=== PATIENT | male | born 1995 | race Caucasian/White ===

== ENCOUNTER 2017-10-13 22:42 | Emergency (ER) | payer BC ==
[2017-10-13] MEDS ORDERED: ONDANSETRON 4 MG/2 ML VIAL IVP ONE (22:59)
[2017-10-13] MEDS ORDERED: NS 1,000 ML IV ONE (22:59)
[2017-10-13 23:00] VITALS: O2SAT 100
[2017-10-13 23:00] LABS: % IMMATURE GRANULYOCYTES 0.2 % (0.0-1.1); ABSOLUTE IMMATURE GRANULOCYTES 0.01 10^3/uL (0.00-0.10); ADD DIFF? NO; ADD MORPH? NO; ADD SCAN? NO; ATYPICAL LYMPHOCYTE FLAG 20 (0-99); FRAGMENT RBC FLAG 0 (0-99); HEMATOCRIT 40.8 % (40.0-51.0); HEMOGLOBIN 14.3 g/dL (13.7-17.5); LEFT SHIFT FLG 0 (0-99); LIPEMIA HEMOLYSIS FLAG 90 (0-99); MEAN CELL HEMOGLOBIN 31.3 pg (27.9-34.1); MEAN CELL VOLUME 89.3 fL (81.5-99.8); MEAN PLATELET VOLUME 9.9 fL (8.7-11.7); PLATELET CLUMPS FLAG 10 (0-99); PLATELET COUNT 211 10^3/uL (150-400); RED BLOOD CELL COUNT 4.57 10^6/uL (4.40-6.38); RED CELL DISTRIBUTION WIDTH 12.7 % (11.5-15.2)
[2017-10-13 23:11] LABS: ANION GAP 15 mEq/L (8-16); APTT 25.5 SEC (23.0-38.0); CALCIUM 8.9 mg/dL (8.5-10.4); CARBON DIOXIDE 24 mEq/l (22-31); CHLORIDE 105 mEq/L (97-110); GLOMERULAR FILTRATION RATE > 60; GLUCOSE 97 mg/dL (70-100); INR 0.91 (0.83-1.16); POTASSIUM 3.8 mEq/L (3.5-5.2); PROTIME(PATIENT) 12.5 SEC (12.0-15.0); SODIUM 144 mEq/L (134-144)
--- NOTE | 2017-10-13 23:15 | EDPHY ---
H & P Stated Complaint: Full Trauma, Fall Time Seen by Provider: 10/13/17 22:52 HPI/ROS: Chief Complaint: Fall, unresponsive HPI: 22-year-old presumably intoxicated male was witnessed to trip and fall off of a 3 ft retaining wall, landed forward on his head on the concrete. EMS was called. On arrival the patient was unresponsive. He was not responding to noxious stimuli. Bystanders stated that he had been drinking alcohol. No obvious head trauma per EMS. Patient had normal heart rate and vital signs per EMS and was breathing on his own. Remainder of history is unavailable secondary to the patient's decreased responsiveness. ROS: Unavailable secondary to the patient's decreased responsiveness. PMH: Unknown Social History: Unknown Family History: non-contributory Physical Exam: Gen: Unresponsive, Airway Intact, patient is localizing to pain, making incomprehensible sounds, smells of alcohol, GCS 7 HEENT: Head: Atraumatic Eyes: Pupils 6-4 bilaterally, equally reactive in brisk Ears: No hemotympanum Nose: No epistaxis Mouth: Normal dentition, Airway patent Face: No deformity Neck: non-tender, no stepoff Chest: non-tender, lungs CTA Heart: normal heart tones Abd: soft, abrasion over the left iliac crest Pelvis: stable to AP and Lateral compression Back: atraumatic, no midline tenderness Ext: atramatic, full ROM Skin: no rash Neuro: Moving all extremities - Personal History Current Tetanus/Diphtheria Vaccine: Unsure Current Tetanus Diphtheria and Acellular Pertussis (TDAP): Unsure - Medical/Surgical History Other PMH: unobtainable. - Social History Smoking Status: Unknown if ever smoked Constitutional: Initial Vital Signs Temperature (C) 36.4 C 10/13/17 22:41 Heart Rate 101 H 10/13/17 22:41 Respiratory Rate 22 H 10/13/17 22:41 Blood Pressure 110/82 H 10/13/17 22:41 O2 Sat (%) 100 10/13/17 22:41 O2 Delivery Mode Non-Rebreather Mask O2 (L/minute) 15 Allergies/Adverse Reactions: Unable to Assess Allergy (Unverified 12/14/15 15:59) Home Medications: Medication Instructions Recorded Unobtainable 12/14/15 Medical Decision Making - Diagnostics EKG Interpretation: ECG time 11:37 p.m., sinus rhythm with a rate of 87, normal axis, there is J- point elevation diffusely consistent with early repolarization. Impression: Normal ECG. Imaging Results: Imaging Impressions Cervical Spine CT 10/13/17 22:43 Impression: Negative noncontrast CT of the cervical spine for acute traumatic injury. Results reviewed at the console at the time of the study.. Head CT 10/13/17 22:43 Impression: Small focus of parenchymal hemorrhage involving the high right parietal subcortical white matter. Results reviewed directly at the time of the scan. Abdomen CT 10/13/17 22:46 Impression: No acute posttraumatic findings in the chest abdomen and pelvis. Examination reviewed at the console the time of study acquisition. Chest CT 10/13/17 22:46 Impression: No acute posttraumatic findings in the chest abdomen and pelvis. Examination reviewed at the console the time of study acquisition. Procedures: Procedure: Trauma ultrasound. Limited echocardiogram for pericardial effusion. Limited bedside ultrasound was performed and interpreted by myself for the indication of: thoracoabdominal trauma utilizing the thoracoabdominal emergency ultrasound protocol. Limited transthoracic echocardiogram: The pericardium was visualized and found to be negative for pericardial fluid. The study was negative for pericardial effusion. Limited abdominal ultrasound for blunt abdominal trauma. 1) The right upper quadrant was visualized and was found to be negative for intraperitoneal fluid. 2) The left upper quadrant was visualized and found to be negative for intraperitoneal fluid. The study was felt to be negative for free intraperitoneal fluid. Limited pelvic ultrasound was conducted for abdominal trauma. The bladder was visualized and did not reveal an anechoic area outside of the adjacent urinary bladder. The study was felt to be negative for free intraperitoneal fluid. Limited transthoracic ultrasound for PE shows the bilateral normal string of pearls sign with normal a.m. mode bilaterally, no evidence of pneumothorax. ED Course/Re-evaluation: Patient arrived as a full trauma team activation. No overt initial vital signs were unremarkable. No obvious signs of head trauma. Pupils reactive. Patient smelled of alcohol. Dr. Arambula present at the bedside on patient arrival. Patient underwent primary and secondary survey and E fast scan. Then proceeded directly to CT scanning. CT scan of the head noted for a right parenchymal bleed. Patient's blood alcohol 320. Dr. Arambula has arranged for transfer to [facility] for further care. There are no ICU beds available in this hospital at this time. - Data Points Laboratory Results: Laboratory Results 10/13/17 22:47 10/13/17 22:47 10/13/17 10/13/17 10/13/17 22:47 22:47 22:47 WBC RBC Hgb POC Hgb Hct POC Hct MCV MCH MCHC RDW Plt Count MPV Neut % (Auto) Lymph % (Auto) [place] % (Auto) Eos % (Auto) Baso % (Auto) Nucleat RBC Rel Count Absolute Neuts (auto) Absolute Lymphs (auto) Absolute Monos (auto) Absolute Eos (auto) Absolute Basos (auto) Absolute Nucleated RBC Immature Gran % Immature Gran # PT 12.5 SEC SEC (12.0-15.0) INR 0.91 (0.83-1.16) APTT 25.5 SEC SEC (23.0-38.0) POC Sodium Sodium 144 mEq/L mEq/L (134-144) POC Potassium Potassium 3.8 mEq/L mEq/L (3.5-5.2) POC Chloride Chloride 105 mEq/L mEq/L (97-110) Carbon Dioxide 24 mEq/l mEq/l (22-31) Anion Gap 15 mEq/L mEq/L (8-16) POC BUN BUN 17 mg/dL mg/dL (7-23) Creatinine 1.0 mg/dL mg/dL (0.7-1.3) POC Creatinine Estimated GFR > 60 Glucose 97 mg/dL mg/dL (70-100) POC Glucose Calcium 8.9 mg/dL mg/dL (8.5-10.4) Ethyl Alcohol 328 mg/dL H mg/dL (0-10) Patient ABO/Rh A POSITIVE Antibody Screen NEGATIVE 10/13/17 10/13/17 22:47 22:42 WBC 5.42 10^3/uL 10^3/uL (3.80-9.50) RBC 4.57 10^6/uL 10^6/uL (4.40-6.38) Hgb 14.3 g/dL g/dL (13.7-17.5) POC Hgb 15.3 gm/dL gm/dL (13.7-17.5) Hct 40.8 % % (40.0-51.0) POC Hct 45 % % (40-51) MCV 89.3 fL fL (81.5-99.8) MCH 31.3 pg pg (27.9-34.1) MCHC 35.0 g/dL g/dL (32.4-36.7) RDW 12.7 % % (11.5-15.2) Plt Count 211 10^3/uL 10^3/uL (150-400) MPV 9.9 fL fL (8.7-11.7) Neut % (Auto) 51.3 % % (39.3-74.2) Lymph % (Auto) 37.3 % % (15.0-45.0) [place] % (Auto) 9.4 % % (4.5-13.0) Eos % (Auto) 1.1 % % (0.6-7.6) Baso % (Auto) 0.7 % % (0.3-1.7) Nucleat RBC Rel Count 0.0 % % (0.0-0.2) Absolute Neuts (auto) 2.78 10^3/uL 10^3/uL (1.70-6.50) Absolute Lymphs (auto) 2.02 10^3/uL 10^3/uL (1.00-3.00) Absolute Monos (auto) 0.51 10^3/uL 10^3/uL (0.30-0.80) Absolute Eos (auto) 0.06 10^3/uL 10^3/uL (0.03-0.40) Absolute Basos (auto) 0.04 10^3/uL 10^3/uL (0.02-0.10) Absolute Nucleated RBC 0.00 10^3/uL 10^3/uL (0-0.01) Immature Gran % 0.2 % % (0.0-1.1) Immature Gran # 0.01 10^3/uL 10^3/uL (0.00-0.10) PT INR APTT POC Sodium 142 mEq/L mEq/L (134-144) Sodium POC Potassium 3.5 mEq/L mEq/L (3.3-5.0) Potassium POC Chloride 105 mEq/L mEq/L (97-110) Chloride Carbon Dioxide Anion Gap POC BUN 16 mg/dL mg/dL (7-23) BUN Creatinine POC Creatinine 1.5 mg/dL H mg/dL (0.7-1.3) Estimated GFR Glucose POC Glucose 99 mg/dL mg/dL (70-100) Calcium Ethyl Alcohol Patient ABO/Rh Antibody Screen Medications Given: Discontinued Medications Sodium Chloride (Ns) 1,000 mls @ 0 mls/hr IV ONCE ONE; Wide Open PRN Reason: Protocol Stop: 10/13/17 23:00 Last Admin: 10/13/17 23:33 Dose: 1,000 mls Ondansetron HCl (Zofran) 4 mg IVP EDNOW ONE Stop: 10/13/17 23:00 Last Admin: 10/13/17 22:48 Dose: 4 mg Point of Care Test Results: 10/13/17 22:42 POC Sodium 142 POC Potassium 3.5 POC Chloride 105 POC BUN 16 POC Creatinine 1.5 H POC Glucose 99 Departure - Departure Disposition: Acute Care [facility] Clinical Impression: Intraparenchymal hemorrhage of brain, Alcohol intoxication Condition: Serious Referrals: Patient,NotPresent [Primary Care Provider] - As per Instructions
[2017-10-13 23:19] LABS: ETHANOL SERUM 328 mg/dL (0-10)
--- NOTE | 2017-10-13 23:39 | CPEKG ---
Heart Rate: 87 RR Interval: 690 P-R Interval: 208 QRSD Interval: 88 QT Interval: 376 QTC Interval: 453 P Montague: 70 QRS Montague: 51 T Wave Montague: 57 EKG Severity - NORMAL ECG - EKG Impression: SINUS RHYTHM EKG Impression: ST ELEV, PROBABLE NORMAL EARLY REPOL PATTERN Electronically Signed By: Rivas Lewis 14-Oct-2017 06:29:39
[2017-10-14 00:13] LABS: BASE EXCESS -1.2 mEq/L (-2.5-2.5); BICARBONATE 24 mEq/L (22-26); MEASURED OXYGEN SATURATION 99 % (92-95); PCO2 43 mmHg (34-38); PO2 204 mmHg (65-75); TCO2 25 mEq/L (23-27)
[2017-10-14 00:34] VITALS: RESP 15
[2017-10-14 01:11] VITALS: BP 119/62; PULSE 80; TEMP 97.2
--- NOTE | 2017-10-14 01:32 | GDS ---
[f rep st] TRANSFER SUMMARY HISTORY AND PHYSICAL AND TRANSFER SUMMARY HISTORY: The patient is a 22-year-old male who was running and apparently fell over 3 foot wall landing on a cement walkway. He was unresponsive at the scene , and transported by EMS. He did not have any vomiting. On admission, he was met in the emergency room by Dr. Lewis and Dr. Arambula. PHYSICAL EXAMINATION: HEENT: Evaluation of his head and neck first shows that his airway is clear, his breathing is unencumbered, and there is no external bleeding. Specifically, regarding his head, his skull is palpably normal. There are no raccoon eyes. There is no Rodriguez sign. His jaw appears to be stable. NECK: He is in a C-collar and he is left in a C-collar due to his mental status. UPPER EXTREMITIES: His right upper extremity is ranged and found to be unremarkable. His left upper extremity is ranged and found to be unremarkable. His clavicles are palpably normal. His chest is stable to AP and lateral compression. Breath sounds are equal bilaterally. CARDIAC: Shows S1, S2 to be normal with normal split of S2, without murmurs, rubs, or gallops. ABDOMEN: Soft, nontender. There is an umbilical hernia noted. There is an abrasion on his left flank. His pelvis is stable to AP and lateral compression. LOWER EXTREMITIES: Ranged and found to be unremarkable. VITAL SIGNS: On admission, were 110/82, heart rate of 99, respirations 20, temperature 36.2. MEDICATIONS: Received have been limited to Zofran. IMAGING: He was taken to CAT scan. In CAT scan, the CAT scan of his head shows a minimal skin thickening consistent with a contusion. It shows a small intraparenchymal linear bleed in the right posterior parietal/occipital area. There is no evidence of shift. There is no evidence of epidural or subdural bleed. There is a suggestion of a small subarachnoid bleed near the brainstem. CT of his neck is unremarkable. CT of his chest shows no great vessel injury. No pneumothorax. No pulmonary contusion. No hemo or hydrothorax. Note is made he did have an extended FAST examination in the ER, which did show a full bladder, a normal right kidney with no evidence of fluid in Morison's pouch. Normal left kidney with no fluid between the spleen and the kidney. The cardiac exam showed no evidence of pericardial effusion and good contraction. The pulmonary examination did not show any signs of pneumothorax. The CAT scan of the abdomen confirmed the above findings. The CAT scan of the pelvis was similarly negative. LABORATORY DATA: His coagulation parameters are normal. His blood alcohol is 320, as mentioned above. His hematocrit is 40.8, platelet count is 211. His INR is 0.91. His chemistries reveal sodium 144, potassium of 3.8, BUN of 17 and a creatinine of 1.0. His calcium is 8.9. HOSPITAL COURSE: Unfortunately, there are no available ICU beds at this facility. I have contacted [facility] and talked with Dr. Carlos Alberto Mendez, who is the trauma surgeon yarn preparation supervisor, and she will accept the patient in transfer. He is not intubated at this point and appears to be protecting his airway. Since admission, he has become a little more arousable. He did move his right upper extremity for localizing pain (pinch of his left trapezius), but that is the only movement we have seen. An ABG will be obtained to make sure that his ventilation is appropriate. A Alicea catheter hasd been placed and 300 cc of clear yellow urine had been obtained. PLAN: At this point, I do not see indication to intubate. He will be sent by critical care ambulance to [facility]. /[id number]/MODL MTDD
== END 2017-10-14 01:00 | disposition short-term general hospital (02) ==
LOC: EDUNIT#
PROC: 0T9B70Z Drainage of Bladder with Drainage Device, Via Natural or Artificial Opening (ICD-10-PCS; principal; 2017-10-13)
DX: S06.360A Traumatic hemorrhage of cerebrum, unspecified, without loss of consciousness, initial encounter (principal); W17.89XA Other fall from one level to another, initial encounter; F10.129 Alcohol abuse with intoxication, unspecified; E86.9 Volume depletion, unspecified
CPT/HCPCS: 82947-QW; 96374; G0480

== ENCOUNTER 2017-10-17 09:45 | Emergency (ER) | payer BC ==
[2017-10-17 09:55] VITALS: BP 105/69; PULSE 106; RESP 16; TEMP 98.1; O2SAT 93
--- NOTE | 2017-10-17 10:26 | EDPHY ---
H & P Time Seen by Provider: 10/17/17 10:12 HPI/ROS: CHIEF COMPLAINT: Correa catheter problem HISTORY OF PRESENT ILLNESS: 22-year-old male presents with problem with his Correa catheter. He was seen in this emergency department on 10/13/2017 after a closed head injury. He apparently fell off a 3 ft wall and was found unresponsive. During his emergency department evaluation, a Correa catheter was placed. Apparently the Correa catheter was inflated within the urethra. He was transferred to [facility] because of unavailability of ICU beds. He was seen by a urologist at [facility]. He continues to have a Correa catheter in place and the plan is for the Correa catheter to be removed over the weekend. The Correa catheter is pulling on his penis and is also frequently becoming disconnected at the junction with his collection bag. He denies suprapubic pain. REVIEW OF SYSTEMS: Constitutional: No fever, no chills Eyes: No visual changes ENT: No sore throat Respiratory: No cough, no shortness of breath Cardiac: No chest pain Gastrointestinal: No nausea, no vomiting, no abdominal pain Genitourinary: no dysuria Musculoskeletal: No leg pain or swelling Skin: No rash Neurological: No headache Psychiatric: No anxiety Past Medical/Surgical History: Urethral injury Alcohol abuse Social History: [employer] student Smoking Status: Never smoked Physical Exam: General Appearance: Alert, pleasant Eyes: Pupils equal and round, no conjunctival pallor ENT, Mouth: Mucous membranes moist Neck: Normal inspection Respiratory: Lungs are clear to auscultation Cardiovascular: Regular rate and rhythm Gastrointestinal: Abdomen is soft and nontender Genitourinary: Correa catheter in place, draining yellow urine Neurological: A&O, nonfocal, normal gait Skin: Warm and dry Extremities: normal inspection Psychiatric: Mood and affect normal Constitutional: Initial Vital Signs Temperature (C) 36.7 C 10/17/17 09:51 Heart Rate 106 H 10/17/17 09:51 Respiratory Rate 16 10/17/17 09:51 Blood Pressure 105/69 10/17/17 09:51 O2 Sat (%) 93 10/17/17 09:51 O2 Delivery Mode Room Air Allergies/Adverse Reactions: No Known Allergies Allergy (Unverified 10/17/17 09:51) Home Medications: Medication Instructions Recorded NK [No Known Home Meds] 10/17/17 Medical Decision Making ED Course/Re-evaluation: The correa catheter was adjusted by the ED RN. Dr. Orellana consulted, pt will f/u in the office on Sunday. Departure - Departure Disposition: Home, Routine, Self-Care Clinical Impression: Correa catheter problem Qualifiers: Encounter type: initial encounter Qualified Code(s): T83.9XXA - Unspecified complication of genitourinary prosthetic device, implant and graft, initial encounter Condition: Good Instructions: Correa Catheter Placement and Care (ED) Additional Instructions: I spoke with Dr. Orellana, the urologist front end technician. Follow up in the office on Sunday. You have an appointment with Dr. Hester at [facility] in [place] on October 19 at 9:15 AM [facility] [address] [address] Please bring your insurance card and photo ID to your appointment Referrals: Gil Orellana MD [Medical Doctor] - As per Instructions
--- NOTE | 2017-10-17 12:04 | ASMTCMCOM ---
CM Note CM Note Notes: Case Management asked to assist with making follow up appointment with [facility]. Appointment made with Dr. Hester at the [place] office for October 19 at 0915 AM. I informed patient of this appointment and called patient on his cell phone asking him if I could leave a VM with details/address, etc for appointment. Message left with details as well as CM phone number for any other follow up questions/concerns. Date Signed: 10/17/2017 12:04 PM Electronically Signed By:Mayra Pringle RN
== END 2017-10-17 11:45 | disposition home or self-care (01) ==
DX: T83.9XXA Unspecified complication of genitourinary prosthetic device, implant and graft, initial encounter (principal); Y73.2 Prosthetic and other implants, materials and accessory gastroenterology and urology devices associated with adverse incidents

== ENCOUNTER 2017-10-18 17:53 | Emergency (ER) | payer BC ==
[2017-10-18 18:04] VITALS: TEMP 97.7
--- NOTE | 2017-10-18 18:40 | EDPHY ---
H & P Stated Complaint: bleeding around correa catheter/seen yesterday for same Time Seen by Provider: 10/18/17 18:40 HPI/ROS: Chief complaint: Penis pain, bleeding from Correa insertion History of present illness: This is a 22-year-old male who returns to the emergency room reporting pain in his penis from a Correa insertion. Patient was brought to this hospital approximately a week ago as a full trauma activation. He ultimately was diagnosed with an intracranial bleed and transferred to [facility]. When he was bernice to the ED for the trauma a Correa catheter was inserted and the balloon was inflated before was Correa was all the way into the bladder causing some urethral damage. It is my understanding that while at [facility] that catheter was removed and a new 1 was placed under cystoscopy and left in place to allow the injury to the urethra to heal. Patient was seen in this emergency department yesterday for the same problem. His leg bag was replaced and he felt better. He states again he is having pain in the penis region. Some bleeding coming from the urethral meatus. He reports the sensation that he is not emptying his bladder. No new signs or symptoms including no fevers, no back or flank pain, no pain or swelling in the testicles. He is scheduled to see Urology tomorrow morning at 9:15 a.m.. - Personal History Current Tetanus/Diphtheria Vaccine: No - Medical/Surgical History Hx Asthma: Yes Hx Chronic Respiratory Disease: No Hx Diabetes: No Hx Cardiac Disease: No Hx Renal Disease: No Hx Cirrhosis: No Hx Alcoholism: Yes Hx HIV/AIDS: No Hx Splenectomy or Spleen Trauma: No Other PMH: head trauma, L ankle surgery, L elbow fx - Social History Smoking Status: Never smoked - Physical Exam Exam: General Appearance: Alert, nontoxic Genitourinary: Correa catheter is in place. Dry blood at the urethral meatus. There is clear urine flowing through the catheter. Abdomen: Bowel sounds normal. Abdomen soft, nondistended, nontender. Skin: No rashes or lesions. Constitutional: Initial Vital Signs Temperature (C) 36.5 C 10/18/17 18:02 Heart Rate 95 10/18/17 18:02 Respiratory Rate 18 10/18/17 18:02 Blood Pressure 128/71 H 10/18/17 18:02 O2 Sat (%) 98 10/18/17 18:02 O2 Delivery Mode Room Air Allergies/Adverse Reactions: No Known Allergies Allergy (Verified 10/18/17 18:02) Home Medications: Medication Instructions Recorded NK [No Known Home Meds] 10/17/17 Medical Decision Making ED Course/Re-evaluation: Patient is discussed with my secondary supervising physician Dr. Jeffrey Yoo. Patient presents to the emergency department complaining of pain in his penis from a Correa catheter and sensation that he is not emptying his bladder. Bladder scanner is performed without urine noted in the bladder. Correa catheter bag is changed although Correa catheter is left in place. Patient states he is feeling better. Continues to have urine flow in catheter tubing. He is concerned that pain will return. He is given a 1 time dose of Percocet. He is scheduled to see Urology tomorrow morning. I have discussed the importance of keeping this appointment. Return precautions are given. The patient and his mother voiced understanding and agreement with plan. - Data Points Medications Given: Discontinued Medications Oxycodone/Acetaminophen (Percocet 5/325) 2 tab PO EDNOW ONE Stop: 10/18/17 19:20 Last Admin: 10/18/17 19:37 Dose: 2 tab Departure - Departure Disposition: Home, Routine, Self-Care Clinical Impression: Correa catheter problem Qualifiers: Encounter type: subsequent encounter Qualified Code(s): T83.9XXD - Unspecified complication of genitourinary prosthetic device, implant and graft, subsequent encounter Condition: Good Instructions: Correa Catheter Placement and Care (ED) Additional Instructions: Follow-up with your urologist tomorrow morning at 9:15 a.m. as arranged If symptoms worsen or new symptoms develop return to the emergency room for recheck Referrals: ROLY HUA [Primary Care Provider] - As per Instructions
[2017-10-18] MEDS ORDERED: OXYCODONE/APAP 5/325 TAB PO ONE (19:19)
[2017-10-18 19:43] VITALS: BP 137/78; PULSE 85; RESP 16; O2SAT 97
== END 2017-10-18 19:45 | disposition home or self-care (01) ==
DX: T83.9XXD Unspecified complication of genitourinary prosthetic device, implant and graft, subsequent encounter (principal); J45.909 Unspecified asthma, uncomplicated; Y73.2 Prosthetic and other implants, materials and accessory gastroenterology and urology devices associated with adverse incidents

== ENCOUNTER 2018-08-02 02:54 | Inpatient (IN) | payer BC ==
--- NOTE | 2018-08-02 03:00 | EDPHY ---
H & P Time Seen by Provider: 08/02/18 02:57 HPI/ROS: Chief Complaint: Suicidal ideation, alcohol intoxication HPI: 23-year-old male bar in by police on a mental health hold. Per police the patient called his mother this morning intoxicated and told her that he was going to commit suicide today. He did not provide her with a plan. He does have a history of a possible suicide attempt in the past. He sustained a fall off of a bridge. Per police report that was a prior suicide attempt. Patient states that he simply fell. He is currently denying thoughts of suicide. He is , however, uncooperative with providing history and exam. He is slurring his words and is clearly intoxicated. ROS: 10 systems were reviewed and were negative except those elements noted in the HPI. PMH: Denies Social History: No smoking, occasional alcohol, no recreational drug use Family History: non-contributory Physical Exam: Gen: Awake, Alert, slurred speech HEENT: Nose: no rhinorrhea Eyes: PERRLA, EOMI Mouth: Moist mucosa Neck: Supple, no JVD Chest: nontender, lungs clear to auscultation Heart: S1, S2 normal, no murmur Abd: Soft, non-tender, no guarding Back: no CVA tenderness, no midline tenderness Ext: no edema, non-tender Skin: no rash Neuro: CN II-XII intact, Sensation grossly intact, Strength 5/5 in bilateral upper and lower extremities (Rivas Lewis) Constitutional: Initial Vital Signs Temperature (C) 36.7 C 08/02/18 03:01 Heart Rate 74 08/02/18 03:01 Respiratory Rate 16 08/02/18 03:01 Blood Pressure 124/73 H 08/02/18 03:01 O2 Sat (%) 96 08/02/18 03:01 O2 Delivery Mode Room Air Allergies/Adverse Reactions: No Known Allergies Allergy (Unverified 08/02/18 03:01) Home Medications: Medication Instructions Recorded NK [No Known Home Meds] 08/02/18 Medical Decision Making ED Course/Re-evaluation: Patient's blood alcohol 261. Will need to wait for clearance of his alcohol for mental health evaluation. [address]700 patient signed out to Dr. Roach pending mental health evaluation. (Rivas Lewis) 7:00 a.m.-I assumed care of this patient at shift change. Awaiting mental health evaluation. 9:45 a.m.-admitted to [address] [place] [address] Nichols[address] (Jennifer Rodriguez) Differential Diagnosis: Differential diagnosis includes though it is not limited to suicidal ideation, overdose, acute psychosis, self-injury, alcohol withdrawal. (Jennifer Rodriguez) - Data Points Laboratory Results: Laboratory Results 08/02/18 03:05 08/02/18 03:05 08/02/18 08/02/18 08/02/18 03:05 03:05 03:05 WBC 6.05 10^3/uL 10^3/uL (3.80-9.50) RBC 5.11 10^6/uL 10^6/uL (4.40-6.38) Hgb 15.7 g/dL g/dL (13.7-17.5) Hct 45.5 % % (40.0-51.0) MCV 89.0 fL fL (81.5-99.8) MCH 30.7 pg pg (27.9-34.1) MCHC 34.5 g/dL g/dL (32.4-36.7) RDW 13.3 % % (11.5-15.2) Plt Count 221 10^3/uL 10^3/uL (150-400) MPV 10.1 fL fL (8.7-11.7) Neut % (Auto) 60.6 % % (39.3-74.2) Lymph % (Auto) 31.6 % % (15.0-45.0) Power % (Auto) 5.8 % % (4.5-13.0) Eos % (Auto) 0.8 % % (0.6-7.6) Baso % (Auto) 1.0 % % (0.3-1.7) Nucleat RBC Rel Count 0.0 % % (0.0-0.2) Absolute Neuts (auto) 3.67 10^3/uL 10^3/uL (1.70-6.50) Absolute Lymphs (auto) 1.91 10^3/uL 10^3/uL (1.00-3.00) Absolute Monos (auto) 0.35 10^3/uL 10^3/uL (0.30-0.80) Absolute Eos (auto) 0.05 10^3/uL 10^3/uL (0.03-0.40) Absolute Basos (auto) 0.06 10^3/uL 10^3/uL (0.02-0.10) Absolute Nucleated RBC 0.00 10^3/uL 10^3/uL (0-0.01) Immature Gran % 0.2 % % (0.0-1.1) Immature Gran # 0.01 10^3/uL 10^3/uL (0.00-0.10) Sodium 148 mEq/L H mEq/L (135-145) Potassium 3.7 mEq/L mEq/L (3.3-5.0) Chloride 115 mEq/L H mEq/L (97-110) Carbon Dioxide 18 mEq/l L mEq/l (22-31) Anion Gap 15 mEq/L mEq/L (8-16) BUN 10 mg/dL mg/dL (7-23) Creatinine 0.8 mg/dL mg/dL (0.7-1.3) Estimated GFR > 60 Glucose 137 mg/dL H mg/dL (70-100) Calcium 9.6 mg/dL mg/dL (8.5-10.4) Urine Opiates Screen NEGATIVE (NEGATIVE) Urine Barbiturates NEGATIVE (NEGATIVE) Ur Phencyclidine Scrn NEGATIVE (NEGATIVE) Ur Amphetamine Screen NEGATIVE (NEGATIVE) U Benzodiazepines Scrn NEGATIVE (NEGATIVE) Urine Cocaine Screen NEGATIVE (NEGATIVE) U Marijuana (THC) Screen NON-NEGATIVE H (NEGATIVE) Ethyl Alcohol 261 mg/dL H mg/dL (0-10) Departure - Departure Disposition: [facility] Clinical Impression: Suicidal ideation Alcohol intoxication Qualifiers: Complication of substance-induced condition: uncomplicated Qualified Code(s): F10.920 - Alcohol use, unspecified with intoxication, uncomplicated Condition: Good Instructions: Abuse of Alcohol (ED), Suicide Prevention (ED) Additional Instructions: Follow-up with mental health as suggested. Return with any concerns. Referrals: [facility] [Outside] - As per Instructions
[2018-08-02 03:19] LABS: PLATELET COUNT 221 10^3/uL (150-400)
--- NOTE | 2018-08-02 11:47 | ASMTTCLDSP ---
[facility] Discharge Disposition Disposition: Answers: Admit Disposition Notes: Notes: In consultation with [facility] ED physician, Jesenia Rodriguez MD and on-call psychiatrist, Estiven Romero MD, both concurred that pt appears to meet 27-65 criteria requiring psychiatric hospitalization as pt appears to be at risk of harm to self due to a mental illness condition. Pt was given the 3N prohibited belongings list while in the ED. Was patient given the Answers: Yes Inpatient Behavioral Health Prohibited Belongings List while in the ED? For inpatient Estiven Romero admission, the following psychiatrist agreed to accept patient for admission to Behavioral Health ([facility]): Type of Hold: Answers: M1/72-hour Hold Hold initiated by: Answers: ED Physician Date Signed: 08/02/2018 11:46 AM Electronically Signed By:Ynes Painting
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
[2018-08-02] MEDS ORDERED: chlordiazePOXIDE 25 MG CAP PO PRN (18:53)
[2018-08-02] MEDS ORDERED: MAGNESIUM HYDROXIDE 30 ML UDCUP PO PRN (18:53)
[2018-08-02] MEDS ORDERED: MAG HYDROX/AL HYDROX/SIMETH 30 ML UDCUP PO PRN (18:53)
[2018-08-02] MEDS ORDERED: PROMETHAZINE HCL 25 MG SUPPR PR PRN (18:53)
[2018-08-02] MEDS ORDERED: IBUPROFEN 200 MG TAB PO PRN (18:53)
[2018-08-02] MEDS ORDERED: THIAMINE HCL 100 MG TAB PO ONE (18:53)
[2018-08-02] MEDS: LORazepam 1 MG TAB PO PRN (19:00)
[2018-08-03] MEDS: LORazepam 1 MG TAB PO PRN ×4 (04:56→22:11)
[2018-08-03] MEDS: MULTIVITAMINS 1 EACH TAB PO SCH (09:14)
[2018-08-03] MEDS: THIAMINE HCL 100 MG TAB PO SCH (09:14)
[2018-08-03] MEDS: FOLIC ACID 1 MG TAB PO SCH (09:15)
--- NOTE | 2018-08-03 09:58 | ASMTBHMTP ---
Master Treatment Plan Master Treatment Plan Answers: Depressed Mood without for: Suicidal Ideation Date: 08/03/2018 Diagnosis on Admission: Unspecified Anxiety Disorder Expected length of stay: 3-5 Days Reason for admission: Notes: Per TLC Evaluation - Pt. is a 23 year old, single, male who was brought to the [facility] ED on a M1 hold. Police were called by out of state mother this am since pt had told his mother in an intoxicated state that he was going to kill himself. Pt. march of had a suspected suicide attempt in the past when he fell off a ledge. Per police report this was a prior suicide attempt. Pt. had stated the incident was simply a fall. Pt. presented with slurred speech in an intoxicated state. Per M1 hold pt was brought in by [employer] after receiving a phone call from his mother. She had stated on phone call that patient spoke with her on the phone this morning and stated he would kill himself today. Pt. is currently intoxicated and argumentative. Not barak for safety. Pt. was placed on a M1 hold by ED Physician. Patient's stated presenting problems: Notes: My mom wanted a wellness check over a misunderstanding. 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 Initial disposition plan/considerations: Notes: Return to school at Master Treatment Plan Required Signatures Psychiatrist signature: Answers: Psychiatrist: RN on-shift signature: Answers: RN: Patient signature: Answers: Patient: Date Signed: 08/03/2018 09:58 AM Electronically Signed By:Crissy Maldonado
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
--- NOTE | 2018-08-03 16:18 | BAPA ---
DATE OF SERVICE: 08/03/2018 CHIEF COMPLAINT: "I was just sitting on my couch minding my own business when 4 police officers showed up. I was drinking a little bit and of course, I was upset when they came into the house." HISTORY OF PRESENT ILLNESS: The patient is a 23-year-old single, man , who [facility]. Police were called by his mother who lives out of state. According to the mother, the patient called her while he was intoxicated, stating that he was planning to kill himself. According to the M1 hold states "patient brought in by [place] police after receiving a phone call from his mother. She stated that the patient spoke with her on the phone this morning and stated he would kill himself today. The patient is currently intoxicated and argumentative, not barak for safety. " M1 was signed by Dr. Lewis, in the [facility]. Further collateral information was obtained by the [facility] french drawer, who states that the patient told her, "I received an improper phone call from my mom. She is bipolar. A lot was going on. She called the police. It was not appropriate. It was a false accusation. " The mother told the [facility] french drawer, the patient has been "increasingly disturbed over the past week." Mother also noted, "I have been talking with him every day now. Last night, I believe he was having a panic attack because he saw his ex-girlfriend. He has a no contact order, but he still called her. Things are very out of control with him. He told me he wanted to kill himself. His behavior is so destructive, I am afraid he is going to kill himself. Look at his old records. He is blas to be alive." When this MD met with the patient on the [facility], he was well groomed, appropriately dressed, made appropriate eye contact. He was very frustrated about being placed in the hospital on an M1 hold. He denied any mental health problems. He denies feeling sad, depressed, hopeless, helpless, worthless. He denied having any thoughts, plans, or intents to hurt himself or anyone else. He denied any psychosis. There were no signs or symptoms of mine. The patient states that his admission was "all a mistake." He said that he blamed his mother. He said that she has substance-use issues and also mental health problems. The patient did acknowledge that his mother is worried about him and that she is driving here from [place] in order to help get him treatment. The patient states that he does not need any type of treatment, but says that he is "financially dependent" on his mother and will likely do whatever she asks him to do. The patient states that he did not have any plans or intents to hurt himself when he spoke to his mother. He says he does not remember what he told her on the phone. Does not deny making suicidal statements, but says that was "not my plan." States that he did not want to or to kill himself. He admits that he does not always remember what he says when he has been drinking or how he feels once he gets sober. PAST PSYCHIATRIC HISTORY: The patient has no official mental health diagnoses. He has never been under the care of a psychiatrist in the past. He has had some outpatient counseling in [place], but states that he has not been in a while. The patient has a significant history of alcohol use and marijuana use. The patient has no prior psychiatric hospitalizations. He [facility] 10/[facility]/2017, in an intoxicated state after he fell off a 3-foot retaining wall and fell on his head on the concrete. A CT scan in the ED revealed a right parenchymal bleed. The patient's BAL was 320. The patient was admitted to the ICU at [facility] for approximately 1 week for severe head injury. The [facility] also [facility] 12[facility]14/[facility], and he was found stumbling [facility]. He was in an altered state according to the ED and was unable to follow commands. His BAL at that time was 404. The patient was discharged from the ED to home. The patient's mother states that he has no prior mental health treatment and has never had any substance abuse treatment. ALLERGIES: The patient has no known drug allergies. CURRENT MEDICATIONS: The patient is not currently on any medications. LABS: In the [facility], white cell count was 6.05, hemoglobin 15.7, hematocrit 45.5, platelet count 221. Sodium was 146, potassium 4.6, chloride 111, BUN 10, creatinine 0.8, glucose 135, calcium 9.5. Total bilirubin 0.4, AST 33, ALT 34, alkaline phosphatase 71, total protein 8.3, albumin is 4.8. Urine drug screen was positive for marijuana. Blood alcohol level was 261, was negative for all other drugs of abuse. PAST MEDICAL HISTORY: As previously reported, the patient had a closed-head injury with a right parenchymal bleed after a fall from a 3-foot retaining wall in October of 2017. He suffered a concussion and postconcussive syndrome consisting of poor concentration and headaches. No other medical history noted. No surgical history reported. SOCIAL HISTORY: The patient is an only child. He was raised by a single mother. Patient's father has not been involved in his life since he was born. According to the mother, she says that she is a recovering alcoholic. She also notes that she has a history of bipolar disorder. The patient lives alone in an apartment. He has been attending [employer], majoring in political science and business. 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 Currently, there is a no contact order between the patient and his girlfriend after the patient was charged with domestic violence. He is pending court hearing for that charge. FAMILY HISTORY: Mother has a history of alcohol abuse, as well as diagnosis of bipolar disorder. According to the patient's mother, the paternal side of his family, mother states that there is no known substance abuse or mental health or medical problems. On his paternal side of the family is unknown, since his father was not involved in his life and father was adopted. SUBSTANCE USE HISTORY: Patient has a history of severe alcohol use. He has been seen [facility] on a couple of occasions for severe intoxication with seriously elevated BAL's. The last time was in October of 2017 after the patient fell off a 3-foot retaining wall and hit his head on the concrete, suffered a closed-head injury. The patient states that he started drinking heavily as a freshman in college. He told the [facility] french drawer that he drinks "about 1 time a week" and says that he has 3-4 beers per occasion. The patient is likely significantly minimizing his drinking since his BAL in the ED this time was 261. The last time he was seen in the emergency department was in October of 2017, and he had a BAL of 360, and a year prior to that in 2016, he had a BAL of 404. He also has legal charges stemming from behavior while intoxicated. The patient also states that he uses marijuana several times a week. Denied use of any other illicit drugs or recreational drugs. TRAUMA HISTORY: Patient and mother deny any prior history of physical, sexual, or emotional abuse. LEGAL HISTORY: The patient was given a domestic violence charge after an altercation with his girlfriend, and he also has a felony trespassing charge. The patient has a court hearing for both of those charges in August. He currently has a no-contact order placed on him between him and his girlfriend. MENTAL STATUS EXAMINATION: This is a tall, well-developed, appropriately- groomed college aged man sitting at a desk, wearing a T-shirt and scrub pants. He is alert and oriented x4. His affect is slightly irritated at being in the hospital. He makes good eye contact. His speech rate and volume are both normal. His intellectual function appears to be average, based upon his vocabulary, fund of knowledge, and educational history. He denies feeling sad, helpless, hopeless, worthless, and anxious. He denies having panic attacks. He denies having any thoughts, plans, or intents to hurt himself or anyone else. He denies any symptoms of psychosis including denying auditory and visual hallucinations, paranoid delusions, ideas of reference, and bizarre thoughts. There are no signs or symptoms of mine. The patient does not have pressured speech or racing thoughts. He denies increase in goal-directed activity or decreased need for sleep. He does not have elated or elevated mood or grandiose delusions. His thought process is linear and goal directed. His insight and judgment are both impaired, as evidenced by his ongoing substances despite negative consequences, including a recent closed-head injury after a fall while intoxicated, and several legal charges as a result of substance use. IMPRESSION: 1. Substance-induced mood disorder. 2. Cannabis-use disorder, severe. 3. Alcohol-use disorder, severe. 4. Cocaine-use disorder, unknown severity. 5. Psychosocial stressors include recent (DV) domestic violence charge, court hearing for felony trespassing, conflict with his mother, interpersonal relationships, conflict with his girlfriend, severe substance use. PLAN: 1. Will admit patient to the [facility] Unit on [address] on an M1 hold. 2. Will monitor closely for safety. The patient is currently not exhibiting any signs of psychosis or unsafe behavior. He is acting appropriately. He denies any thoughts, plans, or intents to hurt himself or anyone else. Patient is currently on [facility] protocol to monitor for acute withdrawal sxs. 3. We will continue to monitor and observe the patient. He is currently denying any symptoms of depression, anxiety, or panic disorder. There are also no signs or symptoms of psychosis or mine. The patient denies all psychotic symptoms. It is likely that the symptoms the patient exhibited prior to admission were related to his substance use. Mother states that when he is intoxicated, he talks about having suicidal thoughts and leads her to feel like he is only unsafe when he drinks, according to the mom. 4. The patient is not interested in taking any psychiatric medications. He states that he would like to get back to seeing a therapist or a counselor, although he refuses referral to the [facility] program at . Says that he does not want to get any mental health services through [facility]. States that he would like to see a therapist in private practice in [place]. He cannot remember the name of the therapist he used to see in the past, but says that he would go back to seeing her if she was available. 5. This MD and incident coordinator strongly encouraged the patient and his mother to consider residential substance abuse treatment. The patient states that he is unwilling to do substance abuse treatment at the current time. MD states that there are lower levels of care including individual and group therapy with a certified addictions counselor as well as intensive outpatient groups that focus on helping people with sobriety and recovery issues. The patient minimizes his drug and alcohol use. He states that drugs and alcohol are not a problem for him, even though MD points out that they have led to significant legal issues, altercations, interpersonal difficulties with his girlfriend and with his family. The patient does acknowledge that he says and does things when he is intoxicated that he would not normally do, and sometimes he later regrets them. They often have resulted in physical injury, including the recent closed-head injury that he suffered after a fall off a 3-foot retaining wall while intoxicated. Despite MD pointing these adverse affects out to the patient, he continues to deny that his drug or alcohol use is a problem, and states that he does not want any type of treatment for them. Mother says that she will insist upon the patient going into rehab when she gets into [place] on Sunday or Sunday. She says that the patient will stay with his cousins who live in [place] until she gets here and that she will withdraw financial support if the patient is not willing to get substance abuse treatment. At the current time, there is no indication for psychotropic medications, as the patient is not endorsing and does not show any signs or symptoms of any major psychiatric illness, other than substance-use disorder. The patient might benefit being on naltrexone or Vivitrol or acamprosate in order to curb his urge to use, but at the current time, the patient is not willing to give his consent for any medications. ESTIMATED LENGTH OF STAY: 2-3 days. The patient will likely discharge when his hold expires, as he is not showing any signs of being a danger to himself, danger to others, or gravely disabled. /[id number]/MODL MTDD
[2018-08-03] MEDS: PROMETHAZINE HCL 25 MG TAB PO PRN ×2 (16:30→22:11)
[2018-08-04] MEDS: PROMETHAZINE HCL 25 MG TAB PO PRN ×4 (04:27→21:37)
[2018-08-04] MEDS: LORazepam 1 MG TAB PO PRN ×3 (04:27→12:30)
[2018-08-04] MEDS: FOLIC ACID 1 MG TAB PO SCH (08:22)
[2018-08-04] MEDS: THIAMINE HCL 100 MG TAB PO SCH (08:23)
[2018-08-04] MEDS: MULTIVITAMINS 1 EACH TAB PO SCH (08:23)
--- NOTE | 2018-08-04 14:37 | ASMTBHDC ---
Notes Note: Notes: Pt. reports being "nervous about interaction with doctor yesterday". Pt. reports completing his safety plan and willing to get treatment for substance use. Pt. agreed to attend [facility] upon discharge. Pt. initially stated his mother is "in town", and later stated she was still driving through [place]. Pt. stated he can stay with his cousin, Gildardo Wilson ([phone]) until his mother arrives in [place]. Pt. denied SI, HI, AVH and paranoia. Pt. reports having less panic attacks since being in the hospital. Pt. presents as alert, anxious, demanding at times, somewhat entitled, with good eye contact, and egar to discharge. Staff report pt. sleeping 6.5 hours, taking PRNs as needed, and attending groups. Date Signed: 08/04/2018 02:37 PM Electronically Signed By:Crissy Maldonado
--- NOTE | 2018-08-04 15:05 | ASMTBHDC ---
Notes Note: Notes: CC spoke with pt's cousin, Gildardo Wilson ([phone]). Gildardo stated pt. can stay with him upon discharge until pt's mother arrives in [place]. Gildardo stated he can pick pt. up around lunchtime or after 3:00pm on Sunday. Date Signed: 08/04/2018 03:05 PM Electronically Signed By:Crissy Maldonado
[2018-08-04] MEDS ORDERED: LORazepam 1 MG TAB PO PRN (16:23)
--- NOTE | 2018-08-04 16:28 | SOAPPROG ---
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 Plan: 08/04/18 16:24 1. Patient continues to deny feeling sad, depressed, or suicidal. He denies any thought, plan or intent to hurt himself or others. 2. CC provided patient with information about [facility] IOP at [facility] and [facility]. Patient agreed to f/u with tx at one of these programs. He said he was doing it b/c his MOC "wants me to." 3. Patient plans to go stay with cousins in [place] after d/c. 4. Patient was also given referrals to BC/BS providers for therapy. 5. Patient scored < 4 on CIWA, denies any w/d sxs. He only scored for anxiety which he says is d/t "being here." 6. Likely to d/c tomorrow once [facility] expires. Subjective: Patient denies any w/d sxs. He has only scored on CIWA for anxiety which he says is d/t being in hospital. He is eager to leave tomorrow. He completed safety plan for discharge and agreed to f/u with IOP at [facility] or [facility] for substance abuse. He said he is only doing it b/c his MOC insists. Objective: Vital Signs Temp Pulse Resp BP Pulse Ox 36.8 C 93 16 121/76 H 95 08/04/18 12:00 08/04/18 12:00 08/04/18 12:00 08/04/18 12:00 08/04/18 12:00 MSE: Affect: Euthymic Mood: "Good" TP: Linear TC: Denies SI/HI Insight/ Judgment: Poor a/e/b continued alcohol and THC despite negative consequences - Time Spent With Patient Time Spent With Patient: 15" - Pending Discharge Pending Discharge Within 24 Hours: Yes Pending Discharge Date: 08/05/18 (Likely to d/c tomorrow) Pending Discharge Time: 11:00 ICD10 Worksheet Patient Problems: Problems Problem Status Onset Alcohol intoxication Acute Suicidal ideation Acute
[2018-08-04] MEDS: LORazepam 0.5 MG TAB PO PRN ×2 (16:57→21:36)
[2018-08-05] MEDS: PROMETHAZINE HCL 25 MG TAB PO PRN (06:50)
--- NOTE | 2018-08-05 08:35 | BDS ---
REASON FOR ADMISSION: From the ED note dated 08/02/2018, patient presented to the ED by police on a mental health hold. Police reported that patient called his mother this morning, intoxicated, and told her he was going to commit suicide today. The patient did not provide mother with a plan. Patient does have history of possible suicide attempt in the past. Patient denied suicide in the ED. Patient was, however, uncooperative with providing history and exam. Patient was slurring his words and was clearly intoxicated. Patient was admitted involuntarily on an M1 hold due to being a danger to himself. Patient was admitted for safety, crisis stabilization, and medication management. ADMITTING DIAGNOSES: 1. Alcohol intoxication. 2. Suicidal ideation. ADMISSION PHYSICAL EXAM: The patient was seen on 08/02/2018, for medical evaluation prior to Behavioral Health admission. The patient was medically cleared for inpatient psychiatric hospitalization and treatment. For further details, please refer to project management consultant note dated 08/02/2018. ADMISSION LABS: CBC from 08/02/2018, within normal limits. Chemistry from , within normal limits, except sodium was elevated at 148, chloride was elevated at 115, carbon dioxide was low at 18. Glucose was elevated at 137. Liver function tests from 08/02/2018, within normal limits, except total protein was elevated at 8.3. Toxicology screen from 08/02/2018, negative for all substances of abuse, except was non-negative for THC, was positive for ethyl alcohol with a level of 261. MAJOR PROCEDURES OR TESTS: None. HOSPITAL COURSE: The most prominent symptoms and behaviors while the patient was here were moderate anxiety. Treatment modalities utilized to target moderate anxiety included milieu and group therapy. The patient was placed on a [facility] protocol for safety to monitor alcohol withdrawal symptoms. The patient has improved considerably with no signs of psychiatric symptoms and no psychiatric symptoms expressed. The patient has improved since admission. States to be in stable condition. Feels safe to discharge, and he contracts for safety. Patient's response to treatment was good. There were no adverse or unexpected results of treatment. The patient was safe throughout his stay, active in treatment, engaged in groups, and was appropriate with staff and other patients. The patient met with the treatment team prior to discharge to assess readiness to discharge and reviewed discharge plan. The treatment team consensus is the patient is in stable condition and has a safe discharge plan and is ready to discharge today. CONDITION AT DISCHARGE: Patient is in stable condition and is no longer a danger to self or others, and is not gravely disabled due to mental illness. Patient is no longer in need of inpatient level of care, and can be safely and effectively treated within the community. The patients level of risk at time of discharge is low. MSE: The patient is casually dressed and with good hygiene , and looks stated age. Patient is sitting, posture is upright, and position is relaxed. Patient appears awake, alert, and responds appropriately and reasonably during interview. Patient is engaged, relates well to interviewer, and emotional facial expression is appropriate to situation and changes appropriately with topic. Patient is cooperative, makes comfortable eye contact , and movements are voluntary, deliberate, coordinated, and smooth and even with no inappropriate movements. Patient makes laryngeal sounds effortlessly and shares conversation appropriately; pace of conversation is appropriate, and stream of talking is fluent; articulation is clear and understandable; word choice is effortless and appropriate for education level; completes sentences, occasionally pausing to think; rate and volume are appropriate for interview and setting. Patient reports mood as euthymic. Patients affect is stable with full variable range, congruent with mood, and appropriate to speech and circumstances. Patient has linear and logical thinking, with no loose associations, tangential thought, thought blocking, concrete thinking, or any other signs of formal thought disorder. Patient denies suicidal and homicidal ideation, and denies hallucinations and delusions. Patient appears to be a reliable historian with sound judgement and good insight into current condition. Patient has no apparent dysfunction in recent or remote memory noted , and no evidence of gross cognitive dysfunction noted at any point during the interview. DISCHARGE DIAGNOSES: 1. Alcohol use disorder, severe. 2. Cannabis use disorder. CURRENT MEDICATIONS: No scheduled medications prescribed at the time of discharge. The patient was encouraged to continue vitamin B1 100 mg daily, multivitamin daily, and folic acid 1 mg p.o. daily. DISPOSITION: The patient left hospital independently and voluntarily after a conference call with his mother. His mother is on her way to [place] to spend time with the patient. She is currently driving from [place]. Patient was picked up by his cousin at time of discharge and plans to remain with his cousin until his mother arrives from [place]. FOLLOWUP: tool procurement coordinator reports the appropriate outpatient follow-up services have been established and outpatient appointments have been scheduled. The patient received written instructions with times and dates of outpatient follow-up appointments. The following follow-up recommendations were provided to the patient at discharge: Continue psychotropic medications as prescribed and attend appointments as scheduled. Report any side effects to a psychiatric outpatient provider, a primary care provider, or other health vision care associate. Address any questions or problems concerning the psychotropic medications with a psychiatric outpatient provider, a primary care provider, or other health vision care associate. Contact [facility] or [facility], or go to the nearest emergency room, if you are ever a danger to yourself/others, or unable to care for yourself. As soon as possible, establish a routine medication management treatment with a psychiatric provider, establish routine therapy appointments, and follow-up with a primary care provider. SUBSTANCE ABUSE BRIEF INTERVENTION: Brief intervention regarding the risks of alcohol and cannabis abuse is provided to patient with goal to reduce the risk of harm that could result from the continued use of alcohol and cannabis, with the general aim to investigate the problem, raise awareness of problem, develop a solution with the patient, recommend a specific change or activity, and motivate the patient toward change. Assess substance abuse behavior and give supportive advice about harm reduction, recommend a reduction in hazardous/at- risk consumption patterns, and facilitate referrals for additional specialized treatment with administrator health care facility. Intermediate goal is for the patient to quit use of these substances and engage in OP substance abuse treatment. Intervention focus on intermediate goals to allow for more immediate success in the treatment process to keep the patient motivated. Review following with patient: Cannabis use risks: Short-term use: impaired short-term memory, impaired motor coordination, altered judgement, in high doses paranoia and psychosis. Long-term use addiction, diminished life satisfaction and achievement, symptoms of chronic bronchitis, and increased risk of chronic psychosis disorders if predisposition to such disorders. In withdrawal anger, aggression irritability, anxiety and nervousness, decreased appetite or weight loss, restlessness, and sleep difficulties with strange dreams. Alcohol/Binge Drinking risks: short-term: injuries, violence, alcohol poisoning, risky sexual behaviors. Long-term: high blood pressure, stroke, liver disease, digestive problems, cancer, learning and memory problems, depression and anxiety, social problems, and alcohol dependence. OUTPATIENT SUBSTANCE ABUSE TREATMENT: Patient referred to outpatient provider and treatment for continued treatment related to substance abuse. LEGAL COURSE: The patient was admitted on an M1 hold. Patient became voluntary during hospital stay. Patient discharged today independently and voluntarily. ATTITUDE AT TIME OF DISCHARGE: The patients attitude was positive at time of discharge, and patient reports looking forward to discharging today. The patient reports he feels safe to discharge, is no longer a danger to himself or others, is in stable condition, and contracts for safety. Patient states he will continue medications as prescribed, and establish medication management treatment with an outpatient provider after discharge. Patient reports he understands the information that has been provided to him, and he understands, accepts, and agrees to psychotropic medications. Patient describes internal protective factors as the coping skills he has learned while hospitalized here, and he plans to continue to practice these coping skills after discharge. FAMILY MEETING: This [employer], administrator health care facility, and patient had a conference call with patient's mother at time of discharge. Patient's mother reports patient has a safe discharge plan and is safe to discharge today. LABS AND STUDIES: No pending labs or studies. ADVANCED DIRECTIVES: There were no advance directives on file, and the patient was Full Code during this hospitalization. /[id number]/MODL MTDD
[2018-08-05] MEDS: THIAMINE HCL 100 MG TAB PO SCH (08:49)
[2018-08-05] MEDS: MULTIVITAMINS 1 EACH TAB PO SCH (08:49)
[2018-08-05] MEDS: FOLIC ACID 1 MG TAB PO SCH (08:49)
[2018-08-05 10:28] VITALS: BP 124/75
--- NOTE | 2018-08-05 11:27 | ASMTBHDC ---
Notes Note: Notes: CC reached out to [facility] and confirmed client's IOP Intake time and date, etc. Follow up with: [facility] - [facility] [address] [address] fax: [phone] IOP Intake - SundayAugust 05 (08/05/18) at 7pm Please bring ID and Insurance information. Additional Resources: [place] [email or web address] Referrals: [facility] [address] [place] [address] [facility] [address] [place] [address] Kori Adhikari LPC, [facility] [address] [facility] [address] [place] [address] David Curry PsyD [address] [place] [id number] Luma Parker - Therapist [address] [facility] [address] [place] [address] Adonis Curry MD [address] [place] [address] Evelina Heaton - Psychiatric Nurse [address] [facility] [place] [address] Date Signed: 08/05/2018 11:27 AM Electronically Signed By:James Perdomo
== END 2018-08-05 12:22 | disposition home or self-care (01) | DRG 897 ==
LOC: EEVIPCON 02:54 → MERGE 16:05 → BBEH 16:05
PROVIDERS: ADMIT Psychiatry & Neurology Psychiatry; ATTEND Psychiatry & Neurology Psychiatry
DX: F10.129 Alcohol abuse with intoxication, unspecified (principal); F12.959 Cannabis use, unspecified with psychotic disorder, unspecified; Y90.8 Blood alcohol level of 240 mg/100 ml or more; F41.8 Other specified anxiety disorders; F14.959 Cocaine use, unspecified with cocaine-induced psychotic disorder, unspecified
CPT/HCPCS: 80305; G0480

== ENCOUNTER 2018-09-18 14:01 | Emergency (ER) | payer BC ==
[2018-09-18 14:08] VITALS: BP 108/84
--- NOTE | 2018-09-18 16:25 | EDPHY ---
H & P Stated Complaint: sore throat Time Seen by Provider: 09/18/18 16:25 HPI/ROS: HPI: This is a 23-year-old male who presents with Chief Complaint: Sore throat Location: Throat Quality: Sore Duration: 2 days Signs and Symptoms: + subjective fever, + nausea, no vomiting, no diarrhea, no urinary symptoms, no chest pain, no shortness of breath, no wheezing, no cough, + sore throat, no neck stiffness, no joint pain,+ swollen glands, no ear pain, no rash, + body aches Timing: Sudden onset Severity: Moderate Context: Patient is a student, presents with sudden onset 2 days ago sore throat, subjective fever, swollen glands, body aches. Patient reports that he does not have cough. Did have some nausea but denies any vomiting. Notes that he is eating and drinking without difficulty. Denies abdominal pain, neck stiffness, headache. Took ibuprofen yesterday but none today. Modifying Factors: See above Comment: ROS: A comprehensive 10 system review of systems is otherwise negative aside from elements mentioned in the history of present illness. MEDICAL/SURGICAL/SOCIAL HISTORY: Medical history: Depression Surgical history: Denies Social history: Never smoked. Family history noncontributory. CONSTITUTIONAL: Ill but nontoxic-appearing young adult white male, awake and alert, no obvious distress HEENT: Atraumatic and normocephalic, PERRL, EOMI. Nares patent; no rhinorrhea; no nasal mucosal edema. Tympanic membranes clear. Oropharynx clear, tonsils 1 + with moderate erythema and left white exudate; no right exudate; uvula midline ; and moist pink mucosa. Airway patent. Mild spotty cervical lymphadenopathy. No meningismus. Cardiovascular: Normal S1/S2, regular rate, regular rhythm, without murmur rub or gallop. PULMONARY/CHEST: Symmetrical and nontender. Clear to auscultation bilaterally. Good air movement. No accessory muscle usage. ABDOMEN: Soft, nondistended, nontender, no rebound, no guarding, no peritoneal signs, no masses or organomegaly. No CVAT. EXTREMITIES: 2/2 pulses, strength 5/5, no deformities, no clubbing, no cyanosis or edema. NEUROLOGICAL: no focal neuro deficits. GCS 15. SKIN: Warm and dry, no erythema. no rash. Good capillary refill. Source: Patient Exam Limitations: No limitations - Medical/Surgical History Hx Asthma: No Hx Chronic Respiratory Disease: No Hx Diabetes: No Hx Cardiac Disease: No Hx Renal Disease: No Hx Cirrhosis: No Hx Alcoholism: No Hx HIV/AIDS: No Hx Splenectomy or Spleen Trauma: No Other PMH: depression, - Social History Smoking Status: Never smoked Constitutional: Initial Vital Signs Temperature (C) 36.8 C 09/18/18 14:07 Heart Rate 89 09/18/18 14:07 Respiratory Rate 18 09/18/18 14:07 Blood Pressure 108/84 H 09/18/18 14:07 O2 Sat (%) 94 09/18/18 14:07 O2 Delivery Mode Room Air Allergies/Adverse Reactions: No Known Allergies Allergy (Verified 09/18/18 14:07) Home Medications: Medication Instructions Recorded Folic Acid [Folic Acid 1 MG (*)] 1 mg PO DAILY tab 08/05/18 Multivitamins [Multivitamin (*)] 1 each PO DAILY tab 08/05/18 Thiamine HCl [Vitamin B-1] 100 mg PO DAILY tab 08/05/18 Amoxicillin Trihydrate [Amoxil] 500 mg PO TID 10 Days cap 09/18/18 Medical Decision Making ED Course/Re-evaluation: Vital signs reviewed and stable upon arrival. No systemic signs. No signs of tonsillar abscess/otitis media/sinusitis/airway compromise/ meningitis/sepsis. Rapid strep test positive Given amoxicillin 500 mg and Decadron 10 mg in the emergency room. Given prescription for amoxicillin Eating and drinking without any difficulty. This patient was seen under the supervision of my secondary supervising physician. I evaluated care for this patient independently. Discussed this patient with Dr. Rodriguez. Differential Diagnosis: Differential diagnosis includes but is not limited to viral syndrome, upper respiratory infection, strep tonsillitis, infectious mononucleosis, meningitis. - Data Points Laboratory Results: 09/18/18 16:25 Group A Strep Screen POSITIVE H (NEGATIVE) Medications Given: Discontinued Medications Amoxicillin (Amoxicillin) 500 mg PO EDNOW ONE PRN Reason: Protocol Stop: 09/18/18 16:49 Last Admin: 09/18/18 16:57 Dose: 500 mg Dexamethasone (Decadron) 10 mg PO EDNOW ONE Stop: 09/18/18 16:51 Last Admin: 09/18/18 16:57 Dose: 10 mg Departure - Departure Disposition: Home, Routine, Self-Care Clinical Impression: Streptococcal tonsillopharyngitis Condition: Good Instructions: Strep Throat (ED) Additional Instructions: Take Tylenol 650 mg every 4 hours and/or Ibuprofen 600 mg every 8 hours with food as needed for pain/headache/fever. Take antibiotics as directed. Do not skip a dose. Take all antibiotics until complete. Consume a minimum of 8-10 glasses of water or electrolyte fluid replacement drinks that include Gatorade, Powerade, Pedialyte. Eat a bland diet for the next 48 hours and then slowly advance as tolerated. Rest as much as possible until you are feeling better. Return to the ER immediately if you cannot swallow, have drooling, fevers, neck stiffness, cannot open your jaw, or any other symptoms that concern you. Referrals: ROLY HUA [Primary Care Provider] - As per Instructions Stand Alone Forms: School Excuse Prescriptions: Amoxicillin Trihydrate [Amoxil] 500 mg PO TID 10 Days cap
[2018-09-18] MEDS ORDERED: DEXAMETHASONE 4 MG TAB PO ONE (16:50)
== END 2018-09-18 17:02 | disposition home or self-care (01) ==
DX: J02.0 Streptococcal pharyngitis (principal)